=== PATIENT | male | born 1990 | race Caucasian/White ===

== ENCOUNTER → 2016-12-31 | Outpatient (CLI) | payer BC ==
--- NOTE | 2016-12-31 17:09 | CR ---
EXAMINATION: Lumbar spine HISTORY: Pain COMPARISON: None TECHNIQUE: AP and lateral views FINDINGS: The lumbar spinal alignment is normal. The vertebral body heights and disc spaces appear w ell-maintained. There is no fracture or dislocation. Bone mineralization is normal. The SI joints ar e symmetric. IMPRESSION: Unremarkable lumbar spine.
== END ==
LOC: MW.CHFP 14:26
PROVIDERS: ATTEND Emergency Medicine
DX: M54.40 Lumbago with sciatica, unspecified side (principal); R73.09 Other abnormal glucose; R53.83 Other fatigue
CPT/HCPCS: 36415; 72100; 72100-26; 83036; 84443; 85027

== ENCOUNTER 2024-12-29 05:43 | Emergency (ER) | payer SELFPAY ==
[2024-12-29] MEDS: Ibuprofen 600 MG Tab PO ONE (06:22)
[2024-12-29] MEDS: Acetaminophen 325 MG Tab PO ONE (06:23)
[2024-12-29 06:28] VITALS: BP 153/99; PULSE 80
== END 2024-12-29 06:26 | disposition home or self-care (01) ==
LOC: MW.ED 05:43
DX: H60.503 Unspecified acute noninfective otitis externa, bilateral (principal); F17.200 Nicotine dependence, unspecified, uncomplicated; Z79.899 Other long term (current) drug therapy
CPT/HCPCS: 99282; A9270; 99283